=== PATIENT | male | born 1985 | race Caucasian/White ===

== ENCOUNTER → 2020-05-26 | Outpatient (CLI) | payer OTHER | LOC: KOH-I 13:50 | DX: R07.89 Other chest pain (principal); M54.5 Low back pain; M54.6 Pain in thoracic spine; M47.816 Spondylosis without myelopathy or radiculopathy, lumbar region; M51.36 Other intervertebral disc degeneration, lumbar region | CPT/HCPCS: 71046; 72070; 72100 ==

== ENCOUNTER → 2020-06-22 | Outpatient (CLI) | payer OTHER | LOC: EXRD 06-15 10:00 → HEART 5 06-15 10:00 → EXRD 08:20 | DX: R42 Dizziness and giddiness (principal); E80.6 Other disorders of bilirubin metabolism; K76.0 Fatty (change of) liver, not elsewhere classified | CPT/HCPCS: 76705 ==

== ENCOUNTER → 2020-07-14 | Outpatient (CLI) | payer OTHER | LOC: HEART 5 07:50 | DX: R07.9 Chest pain, unspecified (principal) ==